=== PATIENT | female | born 2000 | race Caucasian/White ===

== ENCOUNTER 2024-06-25 06:33 | Emergency (ER) | payer OTHER ==
[~2024-06-25] VITALS: Ht 167.6 cm; Wt 77.0 kg
[2024-06-25 06:48] VITALS: O2SAT 98
[2024-06-25] MEDS ORDERED: OFLO5DRO4 LEFT EAR (07:32)
[2024-06-25 07:40] VITALS: BP 117/76; PULSE 89; RESP 22; TEMP 37; O2SAT 98
[2024-06-25] MEDS ORDERED: ONDA-239 PO (07:46)
== END 2024-06-25 07:49 | disposition home or self-care (01) ==
LOC: ER 06:33
DX: H72.92 Unspecified perforation of tympanic membrane, left ear (principal)
CPT/HCPCS: 99283